=== PATIENT | male | born 1965 | race Native Hawaiian/Other Pacific Islander ===

== ENCOUNTER 2018-07-06 09:39 | Emergency (ER) | payer OTHER | END 2018-07-06 14:25 | disposition home or self-care (01) | LOC: ED 09:39 | PROC: 0T9B70Z Drainage of Bladder with Drainage Device, Via Natural or Artificial Opening (ICD-10-PCS; principal; 2018-07-06) | DX: N35.919 Unspecified urethral stricture, male, unspecified site (principal) | CPT/HCPCS: 51702; 99282 ==